=== PATIENT | female | born 2000 | race Caucasian/White ===

== ENCOUNTER 2018-02-19 17:29 | Emergency (ER) | payer SELFPAY ==
[2018-02-19 18:08] VITALS: BP 104/62
[2018-02-19 19:16] LABS: Bacteria,Urine 1+ /HPF (Negative); Bilirubin,Urine NEG (Negative); Blood,Urine NEG (Negative); Color,Urine Yellow (Yellow); Mucus,Urine FEW /HPF; Protein,Urine <15 mg/dL mg/dL (Negative); Urobilinogen,Urine < 2.0 mg/dL (<2.0)
[2018-02-19 19:17] LABS: HCG Qualitative,Urine Negative (Negative)
== END 2018-02-19 22:00 | disposition left against medical advice (07) ==
LOC: ED 17:29
DX: J02.9 Acute pharyngitis, unspecified (principal); Z53.21 Procedure and treatment not carried out due to patient leaving prior to being seen by health care provider
CPT/HCPCS: 81001; 81025

== ENCOUNTER 2018-07-04 18:49 | Emergency (ER) | payer OTHER ==
[2018-07-04] MEDS ORDERED: IBUPROFEN PO ONE (19:26)
[2018-07-04 20:19] LABS: Basophils # (Auto) 0.1 K/mm3 (0.0-0.1); Basophils % (Auto) 1.5 % (0.0-1.8); Eosinophils # (Auto) 0.2 K/mm3 (0.0-0.4); Eosinophils % (Auto) 5.1 % (0.0-4.3); Hematocrit 28.2 % (30.3-42.9); Hemoglobin 9.1 gm/dl (10.1-14.3); Lymphocytes # (Auto) 1.7 K/mm3 (1.2-5.4); Lymphocytes % (Auto) 36.7 % (13.4-35.0); Mean Corpuscular HGB Conc 32 % (30-34); Monocytes # (Auto) 0.4 K/mm3 (0.0-0.8); Monocytes % (Auto) 9.4 % (0.0-7.3); Platelet Count 339 K/mm3 (140-440); Red Blood Count 4.29 M/mm3 (3.65-5.03)
[2018-07-04 20:20] LABS: Mean Corpuscular Volume 66 fl (79-97); Red Cell Distribution Width 20.5 % (13.2-15.2)
[2018-07-04 20:43] LABS: Bilirubin,Urine NEG (Negative); Blood,Urine LG (Negative); Color,Urine Red (Yellow); Urobilinogen,Urine < 2.0 mg/dL (<2.0)
[2018-07-04 20:54] LABS: RBC,Urine > 182.0 /HPF (0.0-6.0); WBC,Urine > 182.0 /HPF (0.0-6.0)
[2018-07-04] MEDS ORDERED: XYLOCAINE 1% MPF 5 mL INFILTRATI ONE (23:35)
[2018-07-04] MEDS ORDERED: ROCEPHIN IM ONE (23:35)
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
[2018-07-05 00:49] VITALS: BP 109/61
[2018-07-17] MEDS ORDERED: IBUPROFEN PO ONE (17:06)
== END 2018-07-05 00:10 | disposition home or self-care (01) ==
LOC: ED 18:49
DX: N94.6 Dysmenorrhea, unspecified (principal); N39.0 Urinary tract infection, site not specified; D64.9 Anemia, unspecified; J45.909 Unspecified asthma, uncomplicated; F12.10 Cannabis abuse, uncomplicated; Z88.6 Allergy status to analgesic agent
CPT/HCPCS: 81001; 84703; 85025; 86900; 86901; 96372; 99283; J0696

== ENCOUNTER 2018-08-06 12:57 | Emergency (ER) | payer OTHER ==
--- NOTE | 2018-08-06 13:06 | Emergency Department Report ---
Blank Doc - Documentation Documentation: 17 y/o female c/o of lower abdominal pain and vaginal bleeding having unprotec angela sex . unsure of when last menses. Plan UA/Preg test
[2018-08-06] MEDS ORDERED: IBUPROFEN PO ONE (15:23)
[2018-08-06] MEDS ORDERED: ZOFRAN ODT PO ONE (15:23)
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
[2018-08-06 16:38] LABS: Bacteria,Urine 1+ /HPF (Negative); Bilirubin,Urine NEG (Negative); Blood,Urine LG (Negative); Color,Urine Straw (Yellow); Mucus,Urine FEW /HPF; Protein,Urine <15 mg/dL mg/dL (Negative); Urobilinogen,Urine < 2.0 mg/dL (<2.0)
[2018-08-06 16:44] LABS: HCG Qualitative,Urine Negative (Negative)
[2018-08-06 17:10] VITALS: BP 102/68
== END 2018-08-06 17:13 | disposition home or self-care (01) ==
LOC: ED 12:57
DX: N92.1 Excessive and frequent menstruation with irregular cycle (principal); J45.909 Unspecified asthma, uncomplicated; F17.200 Nicotine dependence, unspecified, uncomplicated; F12.90 Cannabis use, unspecified, uncomplicated; Z79.899 Other long term (current) drug therapy; Z88.6 Allergy status to analgesic agent; Z91.018 Allergy to other foods
CPT/HCPCS: 81001; 81025; 99284; Q0162

== ENCOUNTER 2018-11-17 12:13 | Emergency (ER) | payer OTHER ==
--- NOTE | 2018-11-17 14:23 | Ultrasound Report ---
ULTRASOUND OB LESS THAN 14 WEEKS FETUS ULTRASOUND OB TRANSVAGINAL HISTORY: Abdominal pain and vaginal bleeding during for one day COMPARISON: None TECHNIQUE: Routine transabdominal and transvaginal OB ultrasound performed. FINDINGS: Uterus: The uterus is normal size measuring 7.2 x 4.0 x 4.4 cm. Gestational Sac: Not seen Yolk Sac: Not seen Fetus/Embryo: Not seen Endometrium: 10.2 mm. Ovaries: The ovaries are unremarkable. The right ovary measures 2.6 x 1.2 x 2.4 cm. The left ovary me asures 3.7 x 1.8 x 3.0 cm. Additional findings: None. IMPRESSION No intrauterine is identified at this time. Please correlate with the patient's clinical hi story and consider follow-up. Signer Name: Greg Gregory Jr, MD Signed: 11/17/2018 2:19 PM Workstation Name: [id number]
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
[2018-11-17 16:01] LABS: Bilirubin,Urine NEG (Negative); Blood,Urine LG (Negative); Color,Urine Straw (Yellow); Mucus,Urine FEW /HPF; Protein,Urine <15 mg/dL mg/dL (Negative); Urobilinogen,Urine < 2.0 mg/dL (<2.0)
[2018-11-17 16:08] VITALS: BP 100/60
== END 2018-11-17 16:06 | disposition home or self-care (01) ==
LOC: ED 12:13
DX: O03.9 Complete or unspecified spontaneous abortion without complication (principal); J45.909 Unspecified asthma, uncomplicated; Z79.899 Other long term (current) drug therapy; Z88.6 Allergy status to analgesic agent; Z88.8 Allergy status to other drugs, medicaments and biological substances; Z91.018 Allergy to other foods
CPT/HCPCS: 36415; 76801; 76817; 81001; 84702; 87086; 99283